=== PATIENT | male | born 1975 | race Caucasian/White ===

== ENCOUNTER 2017-03-05 12:22 | Inpatient (IN) | payer OTHER ==
[2017-03-05 13:55] VITALS: BMI 30.3
--- NOTE | 2017-03-05 17:37 | HP ---
CIWA Score - CIWA Score Nausea/Vomitin-No Nausea/No Vomiting Muscle Tremors: 4-Moderate,w/Arms Extend Anxiety: 4-Mod. Anxious/Guarded Agitation: 1-Slight > Activity Paroxysmal Sweats: 3 Orientation: 0-Oriented Tacttile Disturbances: 0-None Auditory Disturbances: 3-Moderate Harsh/Frighten Visual Disturbances: 3-Moderate Sensitivity Headache: 0-None Present CIWA-Ar Total Score: 18 Admission ROS S - HPI Chief Complaint: " I need to get sober and I want to get sober and I need to get sober. I wan to do Detox and Rehab." Pt. is here to detox from Alcohol. Allergies/Adverse Reactions: Allergies Allergy/AdvReac Type Severity Reaction Status Date / Time No Known Allergies Allergy Verified 03/05/17 17:29 History of Present Illness: Pt. is a 41 YO male here to Detox from alcohol. This is pt.'s first Detox admission at [facility]. Patient had 1 Detox admission at [facility] ([place] ) in 08/2016. Longest recent period of sobriety: approx. 1 month (09/2016). Exam Limitations: No Limitations - Ebola screening Have you traveled outside of the country in the last 21 days: No Have you had contact with anyone from an Ebola affected area: No Have you been sick,other than usual withdrawal symptoms: No Do you have a fever: No - Review of Systems Constitutional: Diaphoresis, Loss of Appetite, Malaise, Night Sweats, Changes in sleep, Unintentional Wgt. Loss (Lost approx. 15 lbs. over last 4 months.) EENT: reports: Nose Congestion, Sinus Pressure Respiratory: reports: No Symptoms reported Cardiac: reports: No Symptoms Reported GI: reports: Diarrhea, Nausea, Poor Appetite, Vomiting : reports: No Symptoms Reported Musculoskeletal: reports: No Symptoms Reported Integumentary: reports: No Symptoms Reported Neuro: reports: Tremors Endocrine: reports: No Symptoms Reported Hematology: reports: No Symptoms Reported Psychiatric: reports: Judgement Intact, Mood/Affect Appropiate, Orientated x3, Anxious, Depressed (PTSD; On meds. in past; not currently.) Other Systems: Reviewed and Negative Patient History - Patient Medical History Hx Anemia: No Hx Asthma: No Hx Chronic Obstructive Pulmonary Disease (COPD): No Hx Cancer: No Hx Cardiac Disorders: No Hx Congestive Heart Failure: No Hx Hypertension: No Hx Hypercholesterolemia: No Hx Pacemaker: No HX Cerebrovascular Accident: No Hx Seizures: No Hx Dementia: No Hx Diabetes: No Hx Gastrointestinal Disorders: No (History of Intestinal Polyps; Surgically removed (2013).) Hx Liver Disease: No Hx Genitourinary Disorders: No Hx Sexually Transmitted Disorders: No Hx Renal Disease (ESRD): No Hx Thyroid Disease: No Hx Human Immunodeficiency Virus (HIV): No (Last Tested: 11/2016: NEGATIVE.) Hx Hepatitis C: No (Last Tested: 11/2016: NEGATIVE.) Hx Depression: Yes (and PTSD; On meds. in past, not currently.) Hx Suicide Attempt: No (PATIENT DENIES CURRENT SI / HI.) Hx Bipolar Disorder: Yes (Diagnosed in past at other Detox program (2011). No treatment currently.) Hx Schizophrenia: No Other Medical History: DENIES. - Patient Surgical History Past Surgical History: Yes Hx Neurologic Surgery: No Hx Cataract Extraction: No Hx Cardiac Surgery: No Hx Lung Surgery: No Hx Breast Surgery: No Hx Breast Biopsy: No Hx Abdominal Surgery: No Hx Appendectomy: Yes (1995) Hx Cholecystectomy: No Hx Genitourinary Surgery: No Hx Orthopedic Surgery: No Anesthesia Reaction: No - PPD History Previous Implant?: Yes Documented Results: Negative w/o proof Implanted On Prior [facility] Admission?: Yes PPD to be Administered?: Yes - Reproductive History Patient is a Female of Child Bearing Age (11 -55 yrs old): No (PATIENT IS MALE.) - Smoking Cessation Smoking history: Current every day smoker Have you smoked in the past 12 months: Yes Aproximately how many cigarettes per day: 30 Cigars Per Day: 0 Hx Chewing Tobacco Use: No Initiated information on smoking cessation: Yes 'Breaking Loose' booklet given: 03/05/17 (GIVE ON UNIT.) - Substance & Tx. History Hx Alcohol Use: Yes Hx Substance Use: Yes Substance Use Type: Alcohol, Cocaine Hx Substance Use Treatment: Yes (1 previous Detox at [facility] (08/2016) .) - Substances Abused Alcohol Route: Oral Frequency: Daily Amount used: 2 pints vodka Age of first use: 19 Date of Last Use: 03/05/17 Cocaine Route: Inhalation Frequency: 1-3 times last 30 days Amount used: 3-4 grams Age of first use: 28 Date of Last Use: 03/04/17 Family Disease History - Family Disease History Family Disease History: Diabetes: Grandparent Admission Physical Exam [facility] - Vital Signs Vital Signs: Vital Signs - 24 hr 03/05/17 13:53 Temperature 97.1 F L Pulse Rate 79 Respiratory 20 Rate Blood Pressure 119/71 - Physical General Appearance: Yes: Nourished, Appropriately Dressed, Mild Distress, Tremorous, Anxious HEENTM: Yes: Hearing grossly Normal, Normocephalic, Normal Voice, DB, Pharynx Normal Respiratory: Yes: Chest Non-Tender, Lungs Clear, No Respiratory Distress, No Accessory Muscle Use Neck: Yes: No masses,lesions,Nodules, Supple, Trachea in good position Breast: Yes: Breast Exam Deferred Cardiology: Yes: Regular Rhythm, Regular Rate, S1, S2 Abdominal: Yes: Normal Bowel Sounds, Non Tender, Flat, Soft Genitourinary: Yes: Within Normal Limits Back: Yes: Normal Inspection Musculoskeletal: Yes: full range of Motion, Gait Steady Extremities: Yes: Normal Range of Motion, Non-Tender, Tremors Neurological: Yes: Fully Oriented, Alert, Normal Mood/Affect, Normal Response Integumentary: Yes: Normal Color, Dry, Warm Lymphatic: Yes: Within Normal Limits - Diagnostic (1) Alcohol dependence with uncomplicated withdrawal Current Visit: Yes Status: Acute (2) Cocaine dependence, uncomplicated Current Visit: Yes Status: Acute (3) Nicotine dependence Current Visit: Yes Status: Chronic Qualifiers: Nicotine product type: cigarettes Substance use status: uncomplicated Qualified Code(s): F17.210 - Nicotine dependence, cigarettes, uncomplicated; F17.210 - Nicotine dependence, cigarettes, uncomplicated (4) History of posttraumatic stress disorder (PTSD) Current Visit: Yes Status: Chronic (5) Depression (emotion) Current Visit: Yes Status: Suspected Qualifiers: Depression Type: unspecified Qualified Code(s): F32.9 - Major depressive disorder, single episode, unspecified; F32.9 - Major depressive disorder, single episode, unspecified; F32.9 - Major depressive disorder, single episode, unspecified Cleared for Admission [facility] - Detox or Rehab [facility] Level of Care: Medically Managed Detox Regimen/Protocol: Librium S Breath Alcohol Content Breath Alcohol Content: 0.057 Urine Drug Screen - Results Drug Screen Negative: No Urine Drug Screen Results: PEDRITO-Cocaine
[2017-03-05] MEDS ORDERED: MAG HYDROX/AL HYDROX/SIMETH 30 ML UNIT-DOSE CUP PO PRN (18:07)
[2017-03-05] MEDS ORDERED: IBUPROFEN 400 MG TABLET (FP) PO PRN (18:07)
[2017-03-05] MEDS ORDERED: P-EPHED 60MG/TRIPROLIDI 2.5MG TABLET PO PRN (18:07)
[2017-03-05] MEDS ORDERED: MAGNESIUM CITRATE 300 ML BOTTLE PO PRN (18:07)
[2017-03-05] MEDS ORDERED: chlordiazePOXIDE HCL 25 MG CAPSULE PO PRN (18:07)
[2017-03-05] MEDS ORDERED: chlordiazePOXIDE HCL 25 MG CAPSULE PO ONE (18:07)
[2017-03-05] MEDS ORDERED: MAGNESIUM HYDROX 2400MG/30ML ORAL SUSPENSION 30 ML CUP PO PRN (18:07)
[2017-03-05] MEDS ORDERED: MENTHOL/PHENOL 1 EACH UD MM PRN (18:07)
[2017-03-05] MEDS ORDERED: guaiFENesin/D-METHORPHAN HB 10 ML UNIT-DOSE CUPS PO PRN (18:07)
[2017-03-05] MEDS ORDERED: ACETAMINOPHEN 325 MG TABLET (FP) PO PRN (18:07)
[2017-03-05] MEDS ORDERED: hydrOXYzine PAMOATE 50 MG CAPSULE (FP) PO PRN (18:07)
[2017-03-05] MEDS: NICOTINE POLACRILEX 4 MG GUM BC PRN ×2 (20:02→22:33)
[2017-03-05 20:53] LABS: URINE APPEARANCE CLEAR; URINE BILIRUBIN NEGATIVE (NEGATIVE); URINE BLOOD 2+ (NEGATIVE); URINE COLOR LTYELLOW; URINE GLUCOSE (UA) NEGATIVE (NEGATIVE); URINE KETONE NEGATIVE (NEGATIVE); URINE LEUK ESTERASE NEGATIVE (NEGATIVE); URINE NITRITE NEGATIVE (NEGATIVE); URINE PROTEIN NEGATIVE (NEGATIVE); URINE UROBILINOGEN NEGATIVE mg/dL (0.2-1.0)
[2017-03-05 21:07] LABS: URINE RBC 1 /hpf (0-3); URINE WBC 1 /hpf (3-5)
[2017-03-05] MEDS: chlordiazePOXIDE HCL 25 MG CAPSULE PO SCH (22:32)
[2017-03-05] MEDS: THIAMINE HCL 100 MG TABLET (FP) PO SCH (22:32)
[2017-03-06] MEDS: chlordiazePOXIDE HCL 25 MG CAPSULE PO SCH ×4 (06:10→22:25)
[2017-03-06] MEDS: NICOTINE POLACRILEX 4 MG GUM BC PRN ×6 (06:11→22:26)
[2017-03-06 10:16] LABS: MCH 25.2 pg (25.7-33.7); MCHC 32.5 g/dl (32.0-35.9); MEAN CELL VOLUME 77.5 fl (80-96); MEAN PLT VOLUME 9.2 fl (7.5-11.1); PLATELET COUNT 214 K/MM3 (134-434); RDW 16.8 % (11.9-15.9); WHITE BLOOD COUNT 7.1 K/mm3 (4.0-10.0)
[2017-03-06] MEDS: PRENATAL VITAMINS W/ FOLIC ACID TABLET (FP) PO SCH (10:30)
[2017-03-06 10:37] LABS: ALBUMIN 3.8 g/dl (3.4-5.0); ANION GAP 6 (8-16); CALCIUM 9.1 mg/dL (8.5-10.1); CO2 30 mmol/L (21-32); CREATININE 0.9 mg/dL (0.7-1.3); GLUCOSE,RANDOM 84 mg/dL (74-106); SGOT/AST 20 U/L (15-37); SGPT/ALT 19 U/L (12-78)
[2017-03-06 10:38] LABS: ALK PHOS 63 U/L (45-117); BILIRUBIN,TOTAL 1.1 mg/dL (0.2-1.0); TOT PROT 6.8 g/dl (6.4-8.2)
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
--- NOTE | 2017-03-06 12:25 | PN ---
[facility] CIWA - CIWA Score Nausea/Vomitin-No Nausea/No Vomiting Muscle Tremors: 4-Moderate,w/Arms Extend Anxiety: 5 Agitation: 1-Slight > Activity Paroxysmal Sweats: 3 Orientation: 0-Oriented Tacttile Disturbances: 2-Mild Itch/Numbness/Burn Auditory Disturbances: 0-None Visual Disturbances: 0-None Headache: 3-Moderate CIWA-Ar Total Score: 18 S Progress Note (SOAP) Subjective: Diarrhea, Sweating, Tremors, H/A, Anxious, Interrupted sleep. Objective: PT. A & O X 3, OBSERVED AMBULATING ON UNIT. NO ACUTE DISTRESS. 03/06/17 12:23 Vital Signs Temperature 96.4 F L 03/06/17 09:27 Pulse Rate 64 03/06/17 09:27 Respiratory Rate 18 03/06/17 09:27 Blood Pressure 101/67 03/06/17 09:27 O2 Sat by Pulse Oximetry (%) Laboratory Tests 03/05/17 03/06/17 03/06/17 18:40 07:15 07:15 WBC 7.1 RBC 5.65 H Hgb 14.2 Hct 43.7 MCV 77.5 L MCH 25.2 L MCHC 32.5 RDW 16.8 H Plt Count 214 MPV 9.2 Sodium 142 Potassium 3.9 Chloride 106 Carbon Dioxide 30 Anion Gap 6 L BUN 13 Creatinine 0.9 Creat Clearance w eGFR > 60 Random Glucose 84 Calcium 9.1 Total Bilirubin 1.1 H AST 20 ALT 19 Alkaline Phosphatase 63 Total Protein 6.8 Albumin 3.8 Urine Color Ltyellow Urine Appearance Clear Urine pH 5.0 Ur Specific [place] 1.010 Urine Protein Negative Urine Glucose (UA) Negative Urine Ketones Negative Urine Blood 2+ H Urine Nitrite Negative Urine Bilirubin Negative Urine Urobilinogen Negative Urine RBC 1 Urine WBC 1 Ur Epithelial Cells Rare RPR Titer 03/06/17 07:15 WBC RBC Hgb Hct MCV MCH MCHC RDW Plt Count MPV Sodium Potassium Chloride Carbon Dioxide Anion Gap BUN Creatinine Creat Clearance w eGFR Random Glucose Calcium Total Bilirubin AST ALT Alkaline Phosphatase Total Protein Albumin Urine Color Urine Appearance Urine pH Ur Specific [place] Urine Protein Urine Glucose (UA) Urine Ketones Urine Blood Urine Nitrite Urine Bilirubin Urine Urobilinogen Urine RBC Urine WBC Ur Epithelial Cells RPR Titer Nonreactive LABS NOTED. Assessment: 03/06/17 12:23 WITHDRAWAL SYMPTOMS. Plan: CONTINUE DETOX. REPEAT UA FOR ELEVATED ADMISSION URINE BLOOD LEVEL. PRN IMMODIUM FOR DIARRHEA. INCREASE DAILY PO FLUID INTAKE.
[2017-03-06 12:40] LABS: SICKLE CELL SCREEN POSITIVE (NEGATIVE)
--- NOTE | 2017-03-06 14:20 | EKG ---
Test Reason : Blood Pressure : / mmHG Vent. Rate : 074 BPM Atrial Rate : 074 BPM P-R Int : 166 ms QRS Dur : 102 ms QT Int : 396 ms P-R-T Axes : 071 075 041 degrees QTc Int : 439 ms NORMAL SINUS RHYTHM NORMAL ECG NO PREVIOUS ECGS AVAILABLE Confirmed by SHARRI DE DIOS MD (2013) on 03/06/2017 2:20:02 PM Referred By: Confirmed By:SHARRI DE DIOS MD
[2017-03-06] MEDS: LOPERAMIDE HCL 2 MG CAPSULE PO PRN (17:53)
[2017-03-06] MEDS: THIAMINE HCL 100 MG TABLET (FP) PO SCH (22:25)
[2017-03-07] MEDS: chlordiazePOXIDE HCL 25 MG CAPSULE PO SCH ×3 (05:44→17:26)
[2017-03-07] MEDS: NICOTINE POLACRILEX 4 MG GUM BC PRN ×4 (05:47→20:46)
[2017-03-07] MEDS: PRENATAL VITAMINS W/ FOLIC ACID TABLET (FP) PO SCH (10:17)
--- NOTE | 2017-03-07 13:15 | PN ---
[facility] CIWA - CIWA Score Nausea/Vomitin-Mild Nausea/No Vomiting Muscle Tremors: None Anxiety: 4-Mod. Anxious/Guarded Agitation: 2 Paroxysmal Sweats: 3 Orientation: 0-Oriented Tacttile Disturbances: 1-Very Mild Itch/Numbness Auditory Disturbances: 0-None Visual Disturbances: 3-Moderate Sensitivity Headache: 3-Moderate CIWA-Ar Total Score: 17 [facility] Progress Note (SOAP) Subjective: Sweating, Diarrhea, H/A, Body Aches, Stomach Cramping. Objective: PT. A & O X 3, OBSERVED AMBULATING ON UNIT. NO ACUTE DISTRESS. 03/07/17 13:12 Vital Signs Temperature 97.5 F L 03/07/17 10:32 Pulse Rate 79 03/07/17 10:32 Respiratory Rate 18 03/07/17 10:32 Blood Pressure 121/57 03/07/17 10:32 O2 Sat by Pulse Oximetry (%) Laboratory Tests 03/05/17 03/06/17 03/06/17 18:40 07:15 07:15 WBC 7.1 RBC 5.65 H Hgb 14.2 Hct 43.7 MCV 77.5 L MCH 25.2 L MCHC 32.5 RDW 16.8 H Plt Count 214 MPV 9.2 Sickle Cell Screen Positive Sodium 142 Potassium 3.9 Chloride 106 Carbon Dioxide 30 Anion Gap 6 L BUN 13 Creatinine 0.9 Creat Clearance w eGFR > 60 Random Glucose 84 Calcium 9.1 Total Bilirubin 1.1 H AST 20 ALT 19 Alkaline Phosphatase 63 Total Protein 6.8 Albumin 3.8 Urine Color Ltyellow Urine Appearance Clear Urine pH 5.0 Ur Specific [place] 1.010 Urine Protein Negative Urine Glucose (UA) Negative Urine Ketones Negative Urine Blood 2+ H Urine Nitrite Negative Urine Bilirubin Negative Urine Urobilinogen Negative Urine RBC 1 Urine WBC 1 Ur Epithelial Cells Rare RPR Titer 03/06/17 07:15 WBC RBC Hgb Hct MCV MCH MCHC RDW Plt Count MPV Sickle Cell Screen Sodium Potassium Chloride Carbon Dioxide Anion Gap BUN Creatinine Creat Clearance w eGFR Random Glucose Calcium Total Bilirubin AST ALT Alkaline Phosphatase Total Protein Albumin Urine Color Urine Appearance Urine pH Ur Specific [place] Urine Protein Urine Glucose (UA) Urine Ketones Urine Blood Urine Nitrite Urine Bilirubin Urine Urobilinogen Urine RBC Urine WBC Ur Epithelial Cells RPR Titer Nonreactive LABS NOTED. REPEAT UA RESULTS PENDING. 03/07/17 13:13 Assessment: 03/07/17 13:12 WITHDRAWAL SYMPTOMS. Plan: CONTINUE DETOX. PRN IMMODIUM FOR DIARRHEA. INCREASE DAILY PO FLUID INTAKE.
[2017-03-07] MEDS: THIAMINE HCL 100 MG TABLET (FP) PO SCH (22:17)
[2017-03-07] MEDS: chlordiazePOXIDE 5 MG CAPSULE PO SCH (22:17)
[2017-03-07] MEDS: diphenhydrAMINE HCL 50 MG CAPSULE PO PRN (22:18)
[2017-03-08] MEDS: chlordiazePOXIDE 5 MG CAPSULE PO SCH ×3 (05:32→17:23)
[2017-03-08] MEDS: NICOTINE POLACRILEX 4 MG GUM BC PRN ×7 (05:34→22:38)
[2017-03-08] MEDS: PRENATAL VITAMINS W/ FOLIC ACID TABLET (FP) PO SCH (10:09)
[2017-03-08] MEDS: LOPERAMIDE HCL 2 MG CAPSULE PO PRN (17:25)
[2017-03-08 18:12] LABS: URINE APPEARANCE CLEAR; URINE BILIRUBIN NEGATIVE (NEGATIVE); URINE BLOOD NEGATIVE (NEGATIVE); URINE COLOR LTYELLOW; URINE GLUCOSE (UA) NEGATIVE (NEGATIVE); URINE KETONE NEGATIVE (NEGATIVE); URINE NITRITE NEGATIVE (NEGATIVE); URINE PROTEIN NEGATIVE (NEGATIVE); URINE UROBILINOGEN NEGATIVE mg/dL (0.2-1.0)
--- NOTE | 2017-03-08 20:05 | PN ---
[facility] Progress Note (SOAP) Subjective: Interrupted Sleep, Diarrhea, Stomach Cramping, Tremors. Objective: PT. A & O X 2 (DISORIENTED ABOUT DAY / DATE). PT. OBSERVED AMBULATING ON UNIT. NO ACUTE DISTRESS. 03/08/17 20:02 Vital Signs Temperature 98.5 F 03/08/17 18:19 Pulse Rate 71 03/08/17 18:19 Respiratory Rate 18 03/08/17 18:19 Blood Pressure 111/61 03/08/17 18:19 O2 Sat by Pulse Oximetry (%) Laboratory Tests 03/05/17 03/06/17 03/06/17 18:40 07:15 07:15 WBC 7.1 RBC 5.65 H Hgb 14.2 Hct 43.7 MCV 77.5 L MCH 25.2 L MCHC 32.5 RDW 16.8 H Plt Count 214 MPV 9.2 Sickle Cell Screen Positive Sodium 142 Potassium 3.9 Chloride 106 Carbon Dioxide 30 Anion Gap 6 L BUN 13 Creatinine 0.9 Creat Clearance w eGFR > 60 Random Glucose 84 Calcium 9.1 Total Bilirubin 1.1 H AST 20 ALT 19 Alkaline Phosphatase 63 Total Protein 6.8 Albumin 3.8 Urine Color Ltyellow Urine Appearance Clear Urine pH 5.0 Ur Specific [place] 1.010 Urine Protein Negative Urine Glucose (UA) Negative Urine Ketones Negative Urine Blood 2+ H Urine Nitrite Negative Urine Bilirubin Negative Urine Urobilinogen Negative Urine RBC 1 Urine WBC 1 Ur Epithelial Cells Rare RPR Titer 03/06/17 03/08/17 07:15 11:00 WBC RBC Hgb Hct MCV MCH MCHC RDW Plt Count MPV Sickle Cell Screen Sodium Potassium Chloride Carbon Dioxide Anion Gap BUN Creatinine Creat Clearance w eGFR Random Glucose Calcium Total Bilirubin AST ALT Alkaline Phosphatase Total Protein Albumin Urine Color Ltyellow Urine Appearance Clear Urine pH 7.0 D Ur Specific [place] Urine Protein Negative Urine Glucose (UA) Negative Urine Ketones Negative Urine Blood Negative Urine Nitrite Negative Urine Bilirubin Negative Urine Urobilinogen Negative Urine RBC Urine WBC Ur Epithelial Cells RPR Titer Nonreactive LABS NOTED. Assessment: 03/08/17 20:03 WITHDRAWAL SYMPTOMS. Plan: CONTINUE DETOX.
[2017-03-08] MEDS: THIAMINE HCL 100 MG TABLET (FP) PO SCH (22:36)
[2017-03-08] MEDS: chlordiazePOXIDE HCL 10 MG CAPSULE PO SCH (22:36)
[2017-03-08] MEDS: diphenhydrAMINE HCL 50 MG CAPSULE PO PRN (22:37)
[2017-03-08 22:40] LABS: URINE LEUK ESTERASE Negative (NEGATIVE)
[2017-03-08 23:54] VITALS: PULSE 66
[2017-03-09] MEDS: chlordiazePOXIDE HCL 10 MG CAPSULE PO SCH (06:03)
[2017-03-09] MEDS: NICOTINE POLACRILEX 4 MG GUM BC PRN ×2 (06:05→08:51)
[2017-03-09 07:53] VITALS: BP 118/59; TEMP 98
--- NOTE | 2017-03-09 08:38 | DS ---
[facility] Detox Discharge Summary Admission Date: 03/05/17 Discharge Date: 03/09/17 - History Present History: Alcohol Dependence, Cocaine Dependence Additional Comments: Completed detox. Pt is alert and oriented x 3. NAD. Pt instructed to follow up with PMD for medical management at [facility]. Pertinent Past History: Nicotine dependence, Depression, H/O PTSD - Physical Exam Results Vital Signs: Vital Signs Temperature 98 F 03/09/17 05:00 Pulse Rate 66 03/09/17 05:00 Respiratory Rate 18 03/09/17 05:00 Blood Pressure 118/59 03/09/17 05:00 O2 Sat by Pulse Oximetry (%) Laboratory Last Values WBC 7.1 K/mm3 (4.0-10.0) 03/06/17 07:15 RBC 5.65 M/mm3 (4.00-5.60) H 03/06/17 07:15 Hgb 14.2 GM/dL (11.7-16.9) 03/06/17 07:15 Hct 43.7 % (35.4-49) 03/06/17 07:15 MCV 77.5 fl (80-96) L 03/06/17 07:15 MCH 25.2 pg (25.7-33.7) L 03/06/17 07:15 MCHC 32.5 g/dl (32.0-35.9) 03/06/17 07:15 RDW 16.8 % (11.9-15.9) H 03/06/17 07:15 Plt Count 214 K/MM3 (134-434) 03/06/17 07:15 MPV 9.2 fl (7.5-11.1) 03/06/17 07:15 Sickle Cell Screen Positive (NEGATIVE) 03/06/17 07:15 Sodium 142 mmol/L (136-145) 03/06/17 07:15 Potassium 3.9 mmol/L (3.5-5.1) 03/06/17 07:15 Chloride 106 mmol/L (98-107) 03/06/17 07:15 Carbon Dioxide 30 mmol/L (21-32) 03/06/17 07:15 Anion Gap 6 (8-16) L 03/06/17 07:15 BUN 13 mg/dL (7-18) 03/06/17 07:15 Creatinine 0.9 mg/dL (0.7-1.3) 03/06/17 07:15 Creat Clearance w eGFR > 60 (>60) 03/06/17 07:15 Random Glucose 84 mg/dL (74-106) 03/06/17 07:15 Calcium 9.1 mg/dL (8.5-10.1) 03/06/17 07:15 Total Bilirubin 1.1 mg/dL (0.2-1.0) H 03/06/17 07:15 AST 20 U/L (15-37) 03/06/17 07:15 ALT 19 U/L (12-78) 03/06/17 07:15 Alkaline Phosphatase 63 U/L (45-117) 03/06/17 07:15 Total Protein 6.8 g/dl (6.4-8.2) 03/06/17 07:15 Albumin 3.8 g/dl (3.4-5.0) 03/06/17 07:15 Urine Color Ltyellow 03/08/17 11:00 Urine Appearance Clear 03/08/17 11:00 Urine pH 7.0 (5.0-8.0) D 03/08/17 11:00 Ur Specific [place] 1.020 (1.005-1.025) 03/08/17 11:00 Urine Protein Negative (NEGATIVE) 03/08/17 11:00 Urine Glucose (UA) Negative (NEGATIVE) 03/08/17 11:00 Urine Ketones Negative (NEGATIVE) 03/08/17 11:00 Urine Blood Negative (NEGATIVE) 03/08/17 11:00 Urine Nitrite Negative (NEGATIVE) 03/08/17 11:00 Urine Bilirubin Negative (NEGATIVE) 03/08/17 11:00 Urine Urobilinogen Negative mg/dL (0.2-1.0) 03/08/17 11:00 Ur Leukocyte Esterase Negative (NEGATIVE) 03/08/17 11:00 Urine RBC 1 /hpf (0-3) 03/05/17 18:40 Urine WBC 1 /hpf (3-5) 03/05/17 18:40 Ur Epithelial Cells Rare /hpf (FEW) 03/05/17 18:40 RPR Titer Nonreactive (NONREACTIVE) 03/06/17 07:15 Labs reviewed Pertinent Admission Physical Exam Findings: Withdrawal sx - Treatment Hospital Course: Detox Protocol Followed, Detoxed Safely, Responded well, Discharged Condition Good Patient has Accepted a Rehab Referral to: [facility] - Medication Discharge Medications: Ambulatory Orders NK [No Known Home Medication] 03/05/17 - Diagnosis (1) Alcohol dependence with uncomplicated withdrawal Current Visit: Yes Status: Acute (2) Cocaine dependence, uncomplicated Current Visit: Yes Status: Acute (3) History of posttraumatic stress disorder (PTSD) Current Visit: Yes Status: Chronic (4) Nicotine dependence Current Visit: Yes Status: Chronic Qualifiers: Nicotine product type: cigarettes Substance use status: uncomplicated Qualified Code(s): F17.210 - Nicotine dependence, cigarettes, uncomplicated; F17.210 - Nicotine dependence, cigarettes, uncomplicated (5) Depression (emotion) Current Visit: Yes Status: Suspected Qualifiers: Depression Type: unspecified Qualified Code(s): F32.9 - Major depressive disorder, single episode, unspecified; F32.9 - Major depressive disorder, single episode, unspecified; F32.9 - Major depressive disorder, single episode, unspecified - AMA Did Patient Leave Against Medical Advice: No
--- NOTE | 2017-03-10 16:16 | PN ---
[facility] Progress Note Note: Discharge summary done under my direct supervision of Pau Borja NP
--- NOTE | 2017-03-11 12:46 | HP ---
[facility] Rehab Assess/Revision - Admission History Ad[facility] (PT COMPLETED DETOX ON 03/09/17) Date of Admission to Rehab: 03/11/17 - Findings Detox History & Physical reviewed: Yes Concur with findings: Yes Comments/Additional Findings: PT CAME BACK TODAY TO CONTINUE WITH AFTERCARE RECOMMENDATIONS. ALERT O X 3. NAD. Inpatient Rehab Admission - Initial Determination Are CD services needed?: Yes Free of communicable disease: Yes Not in need of hospitalization: Yes - Rehab Admission Criteria Previous failed treatment: Yes Patient is meeting Inpatient Rehab admission criteria:: Yes (RECENT DETOX AND FOLLOWING UP WITH AFTERCARE.)
== END 2017-03-09 08:59 | disposition home or self-care (01) | DRG 774 ==
LOC: YASAS 12:22 → Y3N 16:16
PROVIDERS: ADMIT Internal Medicine; ATTEND Internal Medicine
PROC: HZ2ZZZZ Detoxification Services for Substance Abuse Treatment (ICD-10-PCS; principal; 2017-03-05)
DX: F10.230 Alcohol dependence with withdrawal, uncomplicated (principal); F14.20 Cocaine dependence, uncomplicated; F17.210 Nicotine dependence, cigarettes, uncomplicated; F43.10 Post-traumatic stress disorder, unspecified; F32.9 Major depressive disorder, single episode, unspecified; F19.24 Other psychoactive substance dependence with psychoactive substance-induced mood disorder
CPT/HCPCS: 36415; 80053; 81003; 81015; 83021; 85027; 85660; 86593; 93005; 93010

== ENCOUNTER 2017-03-11 07:46 | Inpatient (IN) | payer OTHER ==
[2017-03-11 08:54] VITALS: BMI 31.4
--- NOTE | 2017-03-11 12:55 | PN ---
[facility]IRIAM Progress Note Note: [facility] *LIVE* MIRIAM SAUL Rehab Assess/Revision Patient Name: JASPER FERNANDO Date of : 75 Patient Status: Inpatient Attending Provider: Talat Montelongo Date: 03/11/17 12:41 Initialization Date: 03/11/17 12:41 [facility]UL Rehab Assess/Revision - Admission History Admitted to Rehab [facility]: [facility] (PT COMPLETED DETOX ON 03/09/17) Date of Admission to Rehab: 03/11/17 - Findings Detox History & Physical reviewed: Yes Concur with findings: Yes Comments/Additional Findings: PT CAME BACK TODAY TO CONTINUE WITH AFTERCARE RECOMMENDATIONS. ALERT O X 3. NAD. Inpatient Rehab Admission - Initial Determination Are CD services needed?: Yes Free of communicable disease: Yes Not in need of hospitalization: Yes - Rehab Admission Criteria Previous failed treatment: Yes Patient is meeting Inpatient Rehab admission criteria:: Yes (RECENT DETOX AND FOLLOWING UP WITH AFTERCARE.)
[2017-03-11] MEDS ORDERED: IBUPROFEN 400 MG TABLET (FP) PO PRN (12:57)
[2017-03-11] MEDS ORDERED: hydrOXYzine PAMOATE 50 MG CAPSULE (FP) PO PRN (12:57)
[2017-03-11] MEDS ORDERED: LOPERAMIDE HCL 2 MG CAPSULE PO PRN (12:57)
[2017-03-11] MEDS ORDERED: guaiFENesin/D-METHORPHAN HB 10 ML UNIT-DOSE CUPS PO PRN (12:57)
[2017-03-11] MEDS ORDERED: P-EPHED 60MG/TRIPROLIDI 2.5MG TABLET PO PRN (12:57)
[2017-03-11] MEDS ORDERED: MAG HYDROX/AL HYDROX/SIMETH 30 ML UNIT-DOSE CUP PO PRN (12:57)
[2017-03-11] MEDS ORDERED: MAGNESIUM CITRATE 300 ML BOTTLE PO PRN (12:57)
[2017-03-11] MEDS ORDERED: diphenhydrAMINE HCL 50 MG CAPSULE PO PRN (12:57)
[2017-03-11] MEDS ORDERED: MENTHOL/PHENOL 1 EACH UD MM PRN (12:57)
[2017-03-11] MEDS ORDERED: MAGNESIUM HYDROX 2400MG/30ML ORAL SUSPENSION 30 ML CUP PO PRN (12:57)
[2017-03-11] MEDS ORDERED: ACETAMINOPHEN 325 MG TABLET (FP) PO PRN (12:57)
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
[2017-03-11] MEDS: NICOTINE POLACRILEX 4 MG GUM BUC PRN ×3 (16:27→22:03)
[2017-03-11 17:25] LABS: URINE APPEARANCE CLEAR; URINE BILIRUBIN NEGATIVE (NEGATIVE); URINE BLOOD NEGATIVE (NEGATIVE); URINE COLOR YELLOW; URINE GLUCOSE (UA) NEGATIVE (NEGATIVE); URINE KETONE NEGATIVE (NEGATIVE); URINE NITRITE NEGATIVE (NEGATIVE); URINE PROTEIN NEGATIVE (NEGATIVE); URINE UROBILINOGEN NEGATIVE mg/dL (0.2-1.0)
[2017-03-11 21:38] LABS: URINE LEUK ESTERASE Negative (NEGATIVE)
[2017-03-11] MEDS: busPIRone HCL 5 MG TABLET PO SCH (22:01)
[2017-03-11] MEDS: THIAMINE HCL 100 MG TABLET (FP) PO SCH (22:01)
[2017-03-11] MEDS: PRAZOSIN HCL 1 MG CAPSULE PO SCH (22:01)
[2017-03-11] MEDS: QUEtiapine FUMARATE 50 MG TABLET PO SCH (22:01)
[2017-03-12] MEDS: busPIRone HCL 5 MG TABLET PO SCH ×3 (06:37→21:41)
[2017-03-12] MEDS: NICOTINE POLACRILEX 4 MG GUM BUC PRN ×5 (06:38→21:41)
[2017-03-12] MEDS: PRENATAL VITAMINS W/ FOLIC ACID TABLET (FP) PO SCH (10:42)
--- NOTE | 2017-03-12 13:17 | EKG ---
Test Reason : Blood Pressure : / mmHG Vent. Rate : 064 BPM Atrial Rate : 064 BPM P-R Int : 178 ms QRS Dur : 098 ms QT Int : 396 ms P-R-T Axes : 051 075 039 degrees QTc Int : 408 ms NORMAL SINUS RHYTHM INCOMPLETE RIGHT BUNDLE BRANCH BLOCK BORDERLINE ECG WHEN COMPARED WITH ECG OF 05-MAR-2017 20:04, NO SIGNIFICANT CHANGE WAS FOUND Confirmed by TYLER MARIE MD ([id number]) on 03/12/2017 1:16:39 PM Referred By: Samia Dawn Confirmed By:TYLER MARIE MD
[2017-03-12] MEDS: QUEtiapine FUMARATE 50 MG TABLET PO SCH (21:41)
[2017-03-12] MEDS: PRAZOSIN HCL 1 MG CAPSULE PO SCH (21:41)
[2017-03-12] MEDS: THIAMINE HCL 100 MG TABLET (FP) PO SCH (21:41)
[2017-03-13] MEDS: busPIRone HCL 5 MG TABLET PO SCH ×3 (06:15→21:41)
[2017-03-13] MEDS: NICOTINE POLACRILEX 4 MG GUM BUC PRN ×5 (06:16→21:42)
[2017-03-13] MEDS: PRENATAL VITAMINS W/ FOLIC ACID TABLET (FP) PO SCH (10:21)
[2017-03-13] MEDS: THIAMINE HCL 100 MG TABLET (FP) PO SCH (21:41)
[2017-03-13] MEDS: PRAZOSIN HCL 1 MG CAPSULE PO SCH (21:41)
[2017-03-13] MEDS: QUEtiapine FUMARATE 50 MG TABLET PO SCH (21:41)
[2017-03-14] MEDS: busPIRone HCL 5 MG TABLET PO SCH ×2 (06:18→14:45)
[2017-03-14] MEDS: NICOTINE POLACRILEX 4 MG GUM BUC PRN ×6 (08:22→21:45)
[2017-03-14] MEDS: PRENATAL VITAMINS W/ FOLIC ACID TABLET (FP) PO SCH (10:34)
--- NOTE | 2017-03-14 14:19 | PN ---
Psychiatric Progress Note Vital Signs: Vital Signs Period Temp Pulse Resp BP Sys/Melton Pulse Ox Last 24 Hr 97.5 F 64-64 16-18 102-126/64-69 Date of Session: 03/14/17 Chief Complaint:: "anxiety" HPI: Patient is addressing alcohol, nicotine, cocaine use comorbid PTSD and MU. ROS: WNL Current Medications: Active Medications Generic Name Dose Route Start Last Admin Trade Name Freq PRN Reason Stop Dose Admin Acetaminophen 650 mg 03/11/17 12:57 Tylenol - PO Q4H PRN PAIN Al Hydroxide/Mg Hydroxide 30 ml 03/11/17 12:57 Mylanta Oral Suspension - PO Q6H PRN DYSPEPSIA Buspirone HCl 10 mg 03/14/17 14:14 Buspar - PO TID ARRON Diphenhydramine HCl 50 mg 03/11/17 12:57 Benadryl - PO HSMR1 PRN INSOMNIA Eucalyptus/Menthol/Phenol/Sorbitol 1 each 03/11/17 12:57 Cepastat Lozenge - MM Q4H PRN SORE THROAT Guaifenesin 10 ml 03/11/17 12:57 Robitussin Dm - PO Q6H PRN COUGH Hydroxyzine Pamoate 50 mg 03/11/17 12:57 Vistaril - PO Q4H PRN AGITATION Ibuprofen 400 mg 03/11/17 12:57 Motrin - PO Q6H PRN SEVERE PAIN Loperamide HCl 4 mg 03/11/17 12:57 Imodium - PO Q6H PRN DIARRHEA Magnesium Citrate 300 ml 03/11/17 12:57 Citroma - PO Q48H PRN CONSTIPATION Magnesium Hydroxide 30 ml 03/11/17 12:57 Milk Of Magnesia - PO DAILY PRN CONSTIPATION Nicotine Polacrilex 4 mg 03/11/17 12:57 03/14/17 12:41 Nicorette Gum - BUC 4 mg Q2H PRN Administration NICOTINE REPLACEMENT RX Prazosin HCl 2 mg 03/14/17 14:15 Minipress - PO HS ARRON Multivit/Folic Acid/Iron 1 tab 03/12/17 10:00 03/14/17 10:34 Vitamins (Sjr) - PO 1 tab DAILY ARRON Administration Pseudoephedrine/Triprolidine 1 combo 03/11/17 12:57 Actifed - PO TID PRN NASAL CONGESTION Quetiapine Fumarate 50 mg 03/11/17 22:00 03/13/17 21:41 Seroquel - PO 50 mg HS ARRON Administration Thiamine HCl 100 mg 03/11/17 22:00 03/13/17 21:41 Vitamin B1 - PO 100 mg HS ARRON Administration Current Side Effect: No Lab tests ordered: No Lab tests reviewed: Yes Provider note:: Patient reports he feels less anxious since he started Buspar ( not biting his nails), nightmares continues unchanged, no side-effects from medications reported, reviewed medications with the patient , will increase Buspar 10 mg po tis amd Prazoszin 2 mg po hs, continue to monitor progress, supportive tharapy provided. Total face to face time:: 25 Mental Status Exam - Mental Status Exam Alert and Oriented to: Time, Place, Person Cognitive Function: Grossly Intact Patient Appearance: Well Groomed Mood: Anxious Affect: Mood Congruent Patient Behavior: Cooperative Speech Pattern: Clear, Appropriate Voice Loudness: Normal Thought Process: Goal Oriented Thought Disorder: Not Present Hallucinations: Denies Suicidal Ideation: Denies Homicidal Ideation: Denies Insight/Judgement: Fair Sleep: Fair Appetite: Fair Muscle strength/Tone: Normal Gait/Station: Normal Psychiatric Treatment Plan - Problem List (1) Nicotine dependence Current Visit: Yes Qualifiers: Nicotine product type: cigarettes Substance use status: in withdrawal Qualified Code(s): F17.213 - Nicotine dependence, cigarettes, with withdrawal; F17.213 - Nicotine dependence, cigarettes, with withdrawal (2) Post traumatic stress disorder (PTSD) Current Visit: Yes (3) MU (generalized anxiety disorder) Current Visit: Yes (4) Alcohol dependence Current Visit: Yes (5) Cocaine abuse Current Visit: Yes
[2017-03-14] MEDS: busPIRone HCL 10 MG TABLET (FP) PO SCH ×2 (14:26→21:44)
[2017-03-14] MEDS: THIAMINE HCL 100 MG TABLET (FP) PO SCH (21:43)
[2017-03-14] MEDS: PRAZOSIN HCL 1 MG CAPSULE PO SCH (21:44)
[2017-03-14] MEDS: QUEtiapine FUMARATE 50 MG TABLET PO SCH (21:44)
[2017-03-15] MEDS: busPIRone HCL 10 MG TABLET (FP) PO SCH ×3 (06:30→21:37)
[2017-03-15] MEDS: NICOTINE POLACRILEX 4 MG GUM BUC PRN ×5 (06:30→21:38)
[2017-03-15] MEDS: PRENATAL VITAMINS W/ FOLIC ACID TABLET (FP) PO SCH (10:54)
[2017-03-15] MEDS: PRAZOSIN HCL 1 MG CAPSULE PO SCH (21:37)
[2017-03-15] MEDS: THIAMINE HCL 100 MG TABLET (FP) PO SCH (21:37)
[2017-03-15] MEDS: QUEtiapine FUMARATE 50 MG TABLET PO SCH (21:37)
[2017-03-16] MEDS: busPIRone HCL 10 MG TABLET (FP) PO SCH ×3 (06:48→21:32)
[2017-03-16] MEDS: NICOTINE POLACRILEX 4 MG GUM BUC PRN ×6 (06:48→21:34)
[2017-03-16] MEDS: PRENATAL VITAMINS W/ FOLIC ACID TABLET (FP) PO SCH (10:30)
[2017-03-16] MEDS: QUEtiapine FUMARATE 50 MG TABLET PO SCH (21:32)
[2017-03-16] MEDS: PRAZOSIN HCL 1 MG CAPSULE PO SCH (21:32)
[2017-03-16] MEDS: THIAMINE HCL 100 MG TABLET (FP) PO SCH (21:32)
[2017-03-17] MEDS: busPIRone HCL 10 MG TABLET (FP) PO SCH ×3 (06:18→21:53)
[2017-03-17] MEDS: PRENATAL VITAMINS W/ FOLIC ACID TABLET (FP) PO SCH (10:24)
[2017-03-17] MEDS: NICOTINE POLACRILEX 4 MG GUM BUC PRN ×4 (10:25→20:11)
[2017-03-17] MEDS: THIAMINE HCL 100 MG TABLET (FP) PO SCH (21:53)
[2017-03-17] MEDS: QUEtiapine FUMARATE 50 MG TABLET PO SCH (21:53)
[2017-03-17] MEDS: PRAZOSIN HCL 1 MG CAPSULE PO SCH (21:53)
[2017-03-18] MEDS: busPIRone HCL 10 MG TABLET (FP) PO SCH ×3 (06:22→21:32)
[2017-03-18] MEDS: NICOTINE POLACRILEX 4 MG GUM BUC PRN ×5 (06:22→21:33)
[2017-03-18] MEDS: PRENATAL VITAMINS W/ FOLIC ACID TABLET (FP) PO SCH (10:06)
[2017-03-18] MEDS: THIAMINE HCL 100 MG TABLET (FP) PO SCH (21:32)
[2017-03-18] MEDS: QUEtiapine FUMARATE 50 MG TABLET PO SCH (21:32)
[2017-03-18] MEDS: PRAZOSIN HCL 1 MG CAPSULE PO SCH (21:33)
[2017-03-19] MEDS: busPIRone HCL 10 MG TABLET (FP) PO SCH ×3 (06:31→21:33)
[2017-03-19] MEDS: NICOTINE POLACRILEX 4 MG GUM BUC PRN ×5 (06:31→21:34)
[2017-03-19] MEDS: PRENATAL VITAMINS W/ FOLIC ACID TABLET (FP) PO SCH (10:34)
[2017-03-19] MEDS: THIAMINE HCL 100 MG TABLET (FP) PO SCH (21:33)
[2017-03-19] MEDS: PRAZOSIN HCL 1 MG CAPSULE PO SCH (21:33)
[2017-03-19] MEDS: QUEtiapine FUMARATE 50 MG TABLET PO SCH (21:33)
[2017-03-20] MEDS: busPIRone HCL 10 MG TABLET (FP) PO SCH (06:05)
[2017-03-20] MEDS: NICOTINE POLACRILEX 4 MG GUM BUC PRN ×5 (06:06→21:53)
[2017-03-20] MEDS: PRENATAL VITAMINS W/ FOLIC ACID TABLET (FP) PO SCH (10:10)
--- NOTE | 2017-03-20 10:48 | PN ---
Psychiatric Progress Note Vital Signs: Vital Signs Period Temp Pulse Resp BP Sys/Melton Pulse Ox Last 24 Hr 97.4 F 62 16-18 105/62 Date of Session: 03/20/17 Chief Complaint:: progress update HPI: Patient is addressing alcohol, nicotine, cocaine use comorbid PTSD and MU. ROS: wnl Current Medications: Active Medications Generic Name Dose Route Start Last Admin Trade Name Freq PRN Reason Stop Dose Admin Acetaminophen 650 mg 03/11/17 12:57 Tylenol - PO Q4H PRN PAIN Al Hydroxide/Mg Hydroxide 30 ml 03/11/17 12:57 Mylanta Oral Suspension - PO Q6H PRN DYSPEPSIA Buspirone HCl 15 mg 03/20/17 10:40 Buspar - PO TID ARRON Diphenhydramine HCl 50 mg 03/11/17 12:57 Benadryl - PO HSMR1 PRN INSOMNIA Eucalyptus/Menthol/Phenol/Sorbitol 1 each 03/11/17 12:57 Cepastat Lozenge - MM Q4H PRN SORE THROAT Guaifenesin 10 ml 03/11/17 12:57 Robitussin Dm - PO Q6H PRN COUGH Hydroxyzine Pamoate 50 mg 03/11/17 12:57 Vistaril - PO Q4H PRN AGITATION Ibuprofen 400 mg 03/11/17 12:57 Motrin - PO Q6H PRN SEVERE PAIN Loperamide HCl 4 mg 03/11/17 12:57 Imodium - PO Q6H PRN DIARRHEA Magnesium Citrate 300 ml 03/11/17 12:57 Citroma - PO Q48H PRN CONSTIPATION Magnesium Hydroxide 30 ml 03/11/17 12:57 Milk Of Magnesia - PO DAILY PRN CONSTIPATION Nicotine Polacrilex 4 mg 03/11/17 12:57 03/20/17 08:28 Nicorette Gum - BUC 4 mg Q2H PRN Administration NICOTINE REPLACEMENT RX Prazosin HCl 2 mg 03/14/17 22:00 03/19/17 21:33 Minipress - PO 2 mg HS ARRON Administration Multivit/Folic Acid/Iron 1 tab 03/12/17 10:00 03/20/17 10:10 Vitamins (Sjr) - PO 1 tab DAILY ARRON Administration Pseudoephedrine/Triprolidine 1 combo 03/11/17 12:57 Actifed - PO TID PRN NASAL CONGESTION Quetiapine Fumarate 50 mg 03/11/17 22:00 03/19/17 21:33 Seroquel - PO 50 mg HS ARRON Administration Thiamine HCl 100 mg 03/11/17 22:00 03/19/17 21:33 Vitamin B1 - PO 100 mg HS ARRON Administration Medication(s) Change(s): Increase Buspar 15 mg po tid Current Side Effect: No Lab tests ordered: No Lab tests reviewed: Yes Provider note:: Patient was seen today, he reports has been feeling more anxious , found out he is leaving on Ocober 23, he focused on his aftecare plans, reports that his family is very supportive. He reports is more anxious when thinking that he is going to a new program. Supportive therapy provided, discussed treatment plan, patient agreed with careplan. Continue to moniotor progress. Total face to face time:: 25 Mental Status Exam - Mental Status Exam Alert and Oriented to: Time, Place, Person Cognitive Function: Good Patient Appearance: Well Groomed Mood: Anxious Affect: Appropriate, Mood Congruent, Normal Range Patient Behavior: Appropriate, Cooperative Speech Pattern: Clear Voice Loudness: Normal Thought Process: Goal Oriented Thought Disorder: Not Present Hallucinations: None Suicidal Ideation: Denies Homicidal Ideation: Denies Insight/Judgement: Fair Sleep: Fair Appetite: Fair Muscle strength/Tone: Normal Gait/Station: Normal Psychiatric Treatment Plan - Problem List (1) Nicotine dependence Current Visit: Yes Qualifiers: Nicotine product type: cigarettes Substance use status: in withdrawal Qualified Code(s): F17.213 - Nicotine dependence, cigarettes, with withdrawal; F17.213 - Nicotine dependence, cigarettes, with withdrawal (2) Post traumatic stress disorder (PTSD) Current Visit: Yes (3) MU (generalized anxiety disorder) Current Visit: Yes (4) Alcohol dependence Current Visit: Yes (5) Cocaine abuse Current Visit: Yes
[2017-03-20] MEDS: PRAZOSIN HCL 1 MG CAPSULE PO SCH (21:51)
[2017-03-20] MEDS: THIAMINE HCL 100 MG TABLET (FP) PO SCH (21:52)
[2017-03-20] MEDS: QUEtiapine FUMARATE 50 MG TABLET PO SCH (21:52)
[2017-03-21] MEDS: NICOTINE POLACRILEX 4 MG GUM BUC PRN ×7 (06:12→21:58)
[2017-03-21] MEDS: PRENATAL VITAMINS W/ FOLIC ACID TABLET (FP) PO SCH (10:52)
[2017-03-21] MEDS: PRAZOSIN HCL 1 MG CAPSULE PO SCH (21:56)
[2017-03-21] MEDS: QUEtiapine FUMARATE 50 MG TABLET PO SCH (21:57)
[2017-03-21] MEDS: THIAMINE HCL 100 MG TABLET (FP) PO SCH (21:57)
[2017-03-22] MEDS: PRENATAL VITAMINS W/ FOLIC ACID TABLET (FP) PO SCH (10:18)
[2017-03-22] MEDS: NICOTINE POLACRILEX 4 MG GUM BUC PRN ×4 (10:18→21:49)
[2017-03-22] MEDS: PRAZOSIN HCL 1 MG CAPSULE PO SCH (21:48)
[2017-03-22] MEDS: THIAMINE HCL 100 MG TABLET (FP) PO SCH (21:48)
[2017-03-22] MEDS: QUEtiapine FUMARATE 50 MG TABLET PO SCH (21:48)
[2017-03-23] MEDS: NICOTINE POLACRILEX 4 MG GUM BUC PRN ×5 (10:45→21:44)
[2017-03-23] MEDS: PRENATAL VITAMINS W/ FOLIC ACID TABLET (FP) PO SCH (10:45)
[2017-03-23] MEDS: THIAMINE HCL 100 MG TABLET (FP) PO SCH (21:43)
[2017-03-23] MEDS: PRAZOSIN HCL 1 MG CAPSULE PO SCH (21:43)
[2017-03-23] MEDS: QUEtiapine FUMARATE 50 MG TABLET PO SCH (21:43)
[2017-03-24] MEDS: NICOTINE POLACRILEX 4 MG GUM BUC PRN ×5 (06:18→21:33)
[2017-03-24] MEDS: PRENATAL VITAMINS W/ FOLIC ACID TABLET (FP) PO SCH (10:32)
[2017-03-24] MEDS: PRAZOSIN HCL 1 MG CAPSULE PO SCH (21:32)
[2017-03-24] MEDS: QUEtiapine FUMARATE 50 MG TABLET PO SCH (21:32)
[2017-03-24] MEDS: THIAMINE HCL 100 MG TABLET (FP) PO SCH (21:33)
[2017-03-25] MEDS: NICOTINE POLACRILEX 4 MG GUM BUC PRN ×7 (06:15→22:08)
[2017-03-25] MEDS: PRENATAL VITAMINS W/ FOLIC ACID TABLET (FP) PO SCH (10:38)
--- NOTE | 2017-03-25 12:52 | PN ---
Psychiatric Progress Note Vital Signs: Vital Signs Period Temp Pulse Resp BP Sys/Melton Pulse Ox Last 24 Hr 98.4 F 62 18-18 109/62 Date of Session: 03/25/17 Chief Complaint:: "anxious" HPI: Patient is addressing alcohol, nicotine, cocaine use comorbid PTSD and MU ROS: WNL Current Medications: Active Medications Generic Name Dose Route Start Last Admin Trade Name Freq PRN Reason Stop Dose Admin Acetaminophen 650 mg 03/11/17 12:57 Tylenol - PO Q4H PRN PAIN Al Hydroxide/Mg Hydroxide 30 ml 03/11/17 12:57 Mylanta Oral Suspension - PO Q6H PRN DYSPEPSIA Buspirone HCl 20 mg 03/25/17 12:50 Buspar - PO TID ARRON Diphenhydramine HCl 50 mg 03/11/17 12:57 Benadryl - PO HSMR1 PRN INSOMNIA Eucalyptus/Menthol/Phenol/Sorbitol 1 each 03/11/17 12:57 Cepastat Lozenge - MM Q4H PRN SORE THROAT Guaifenesin 10 ml 03/11/17 12:57 Robitussin Dm - PO Q6H PRN COUGH Hydroxyzine Pamoate 50 mg 03/11/17 12:57 Vistaril - PO Q4H PRN AGITATION Ibuprofen 400 mg 03/11/17 12:57 Motrin - PO Q6H PRN SEVERE PAIN Loperamide HCl 4 mg 03/11/17 12:57 Imodium - PO Q6H PRN DIARRHEA Magnesium Citrate 300 ml 03/11/17 12:57 Citroma - PO Q48H PRN CONSTIPATION Magnesium Hydroxide 30 ml 03/11/17 12:57 Milk Of Magnesia - PO DAILY PRN CONSTIPATION Nicotine Polacrilex 4 mg 03/11/17 12:57 03/25/17 10:38 Nicorette Gum - BUC 4 mg Q2H PRN Administration NICOTINE REPLACEMENT RX Prazosin HCl 2 mg 03/14/17 22:00 03/24/17 21:32 Minipress - PO 2 mg HS ARRON Administration Multivit/Folic Acid/Iron 1 tab 03/12/17 10:00 03/25/17 10:38 Vitamins (Sjr) - PO 1 tab DAILY ARRON Administration Pseudoephedrine/Triprolidine 1 combo 03/11/17 12:57 Actifed - PO TID PRN NASAL CONGESTION Quetiapine Fumarate 50 mg 03/11/17 22:00 03/24/17 21:32 Seroquel - PO 50 mg HS ARRON Administration Thiamine HCl 100 mg 03/11/17 22:00 03/24/17 21:33 Vitamin B1 - PO 100 mg HS ARRON Administration Current Side Effect: No Lab tests ordered: No Lab tests reviewed: Yes Provider note:: Patient reports that he has been feeling less anxious, but still has days when he is anxious and restless, he reports no side-effects from medications, sleep is improved and no nightmares reported. Will increase Buspar 20 mg po tid, patient agreed with careplan, continue to monitor progress. Total face to face time:: 25 Mental Status Exam - Mental Status Exam Alert and Oriented to: Time, Place, Person Cognitive Function: Good Patient Appearance: Well Groomed Mood: Sad, Anxious Affect: Appropriate, Mood Congruent Patient Behavior: Appropriate, Cooperative Speech Pattern: Clear, Appropriate Voice Loudness: Normal Thought Process: Intact, Goal Oriented Thought Disorder: Not Present Hallucinations: Denies Suicidal Ideation: Denies Homicidal Ideation: Denies Insight/Judgement: Fair Sleep: Fair Appetite: Fair Muscle strength/Tone: Normal Gait/Station: Normal Psychiatric Treatment Plan - Problem List (1) Nicotine dependence Current Visit: Yes Qualifiers: Nicotine product type: cigarettes Substance use status: in withdrawal Qualified Code(s): F17.213 - Nicotine dependence, cigarettes, with withdrawal; F17.213 - Nicotine dependence, cigarettes, with withdrawal (2) Post traumatic stress disorder (PTSD) Current Visit: Yes (3) MU (generalized anxiety disorder) Current Visit: Yes (4) Alcohol dependence Current Visit: Yes (5) Cocaine abuse Current Visit: Yes
[2017-03-25] MEDS: busPIRone HCL 10 MG TABLET (FP) PO SCH ×2 (14:23→21:39)
[2017-03-25] MEDS: QUEtiapine FUMARATE 50 MG TABLET PO SCH (21:39)
[2017-03-25] MEDS: THIAMINE HCL 100 MG TABLET (FP) PO SCH (21:39)
[2017-03-25] MEDS: PRAZOSIN HCL 1 MG CAPSULE PO SCH (21:39)
[2017-03-26] MEDS: busPIRone HCL 10 MG TABLET (FP) PO SCH ×3 (06:21→21:47)
[2017-03-26] MEDS: NICOTINE POLACRILEX 4 MG GUM BUC PRN ×7 (06:21→20:06)
[2017-03-26] MEDS: PRENATAL VITAMINS W/ FOLIC ACID TABLET (FP) PO SCH (10:31)
[2017-03-26] MEDS: PRAZOSIN HCL 1 MG CAPSULE PO SCH (21:47)
[2017-03-26] MEDS: THIAMINE HCL 100 MG TABLET (FP) PO SCH (21:47)
[2017-03-26] MEDS: QUEtiapine FUMARATE 50 MG TABLET PO SCH (21:47)
[2017-03-27] MEDS: busPIRone HCL 10 MG TABLET (FP) PO SCH ×3 (06:16→21:35)
[2017-03-27] MEDS: NICOTINE POLACRILEX 4 MG GUM BUC PRN ×6 (06:16→21:37)
[2017-03-27] MEDS: PRENATAL VITAMINS W/ FOLIC ACID TABLET (FP) PO SCH (10:15)
[2017-03-27] MEDS: QUEtiapine FUMARATE 50 MG TABLET PO SCH (21:36)
[2017-03-27] MEDS: THIAMINE HCL 100 MG TABLET (FP) PO SCH (21:36)
[2017-03-27] MEDS: PRAZOSIN HCL 1 MG CAPSULE PO SCH (21:36)
[2017-03-28] MEDS: busPIRone HCL 10 MG TABLET (FP) PO SCH ×3 (06:21→21:37)
[2017-03-28] MEDS: NICOTINE POLACRILEX 4 MG GUM BUC PRN ×7 (06:22→22:21)
[2017-03-28] MEDS: PRENATAL VITAMINS W/ FOLIC ACID TABLET (FP) PO SCH (10:09)
[2017-03-28] MEDS: PRAZOSIN HCL 1 MG CAPSULE PO SCH (21:37)
[2017-03-28] MEDS: QUEtiapine FUMARATE 50 MG TABLET PO SCH (21:37)
[2017-03-28] MEDS: THIAMINE HCL 100 MG TABLET (FP) PO SCH (21:37)
[2017-03-29] MEDS: busPIRone HCL 10 MG TABLET (FP) PO SCH ×3 (06:34→22:05)
[2017-03-29] MEDS: PRENATAL VITAMINS W/ FOLIC ACID TABLET (FP) PO SCH (10:28)
[2017-03-29] MEDS: NICOTINE POLACRILEX 4 MG GUM BUC PRN ×6 (10:28→22:07)
[2017-03-29] MEDS: PRAZOSIN HCL 1 MG CAPSULE PO SCH (22:05)
[2017-03-29] MEDS: QUEtiapine FUMARATE 50 MG TABLET PO SCH (22:05)
[2017-03-29] MEDS: THIAMINE HCL 100 MG TABLET (FP) PO SCH (22:06)
[2017-03-30] MEDS: busPIRone HCL 10 MG TABLET (FP) PO SCH ×3 (06:51→21:43)
[2017-03-30] MEDS: NICOTINE POLACRILEX 4 MG GUM BUC PRN ×7 (06:51→21:44)
[2017-03-30] MEDS: PRENATAL VITAMINS W/ FOLIC ACID TABLET (FP) PO SCH (10:19)
--- NOTE | 2017-03-30 14:21 | PN ---
Psychiatric Progress Note Vital Signs: Vital Signs Period Temp Pulse Resp BP Sys/Melton Pulse Ox Last 24 Hr 98.3 F 61-70 18-18 95-122/51-69 Date of Session: 03/30/17 Chief Complaint:: Discharge Note HPI: Patient addressing Alcohol Dependence, Cocaine Abuse comorbid with Nicotine Dependence, Posttraumatic Stress Disorder and Generalized Anxiety Disorder Current Medications: Active Medications Generic Name Dose Route Start Last Admin Trade Name Freq PRN Reason Stop Dose Admin Acetaminophen 650 mg 03/11/17 12:57 Tylenol - PO Q4H PRN PAIN Al Hydroxide/Mg Hydroxide 30 ml 03/11/17 12:57 Mylanta Oral Suspension - PO Q6H PRN DYSPEPSIA Buspirone HCl 20 mg 03/25/17 14:00 03/30/17 06:51 Buspar - PO 20 mg TID ARRON Administration Diphenhydramine HCl 50 mg 03/11/17 12:57 Benadryl - PO HSMR1 PRN INSOMNIA Eucalyptus/Menthol/Phenol/Sorbitol 1 each 03/11/17 12:57 Cepastat Lozenge - MM Q4H PRN SORE THROAT Guaifenesin 10 ml 03/11/17 12:57 Robitussin Dm - PO Q6H PRN COUGH Hydroxyzine Pamoate 50 mg 03/11/17 12:57 Vistaril - PO Q4H PRN AGITATION Ibuprofen 400 mg 03/11/17 12:57 Motrin - PO Q6H PRN SEVERE PAIN Loperamide HCl 4 mg 03/11/17 12:57 Imodium - PO Q6H PRN DIARRHEA Magnesium Citrate 300 ml 03/11/17 12:57 Citroma - PO Q48H PRN CONSTIPATION Magnesium Hydroxide 30 ml 03/11/17 12:57 Milk Of Magnesia - PO DAILY PRN CONSTIPATION Nicotine Polacrilex 4 mg 03/11/17 12:57 03/30/17 12:28 Nicorette Gum - BUC 4 mg Q2H PRN Administration NICOTINE REPLACEMENT RX Prazosin HCl 2 mg 03/14/17 22:00 03/29/17 22:05 Minipress - PO 2 mg HS ARRON Administration Multivit/Folic Acid/Iron 1 tab 03/12/17 10:00 03/30/17 10:19 Vitamins (Sjr) - PO 1 tab DAILY ARRON Administration Pseudoephedrine/Triprolidine 1 combo 03/11/17 12:57 Actifed - PO TID PRN NASAL CONGESTION Quetiapine Fumarate 50 mg 03/11/17 22:00 03/29/17 22:05 Seroquel - PO 50 mg HS ARRON Administration Thiamine HCl 100 mg 03/11/17 22:00 03/29/17 22:06 Vitamin B1 - PO 100 mg HS ARRON Administration Current Side Effect: No Lab tests ordered: Yes Lab tests reviewed: Yes Provider note:: Patient will complete this program on 03/31/17. He has met his treatment goals and will continue to address his issues in outpatient program at [facility]. 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 He responded well to Seroquel 50 mg po HS, Buspar 20 mg po TID and Prazosin 2 mg po HS. Scripts for 30 days supply will electronically be transmitted to [facility] at [address] [place] [address]. He is stable for discharge on 03/31/17 Total face to face time:: 35 Mental Status Exam - Mental Status Exam Alert and Oriented to: Time, Place, Person Cognitive Function: Fair Patient Appearance: Well Groomed Mood: Hopeful, Euthymic Affect: Appropriate Patient Behavior: Cooperative Speech Pattern: Clear Voice Loudness: Normal Thought Process: Intact, Goal Oriented Thought Disorder: Not Present Hallucinations: Denies Suicidal Ideation: Denies Homicidal Ideation: Denies Insight/Judgement: Fair Sleep: Fair Appetite: Fair Muscle strength/Tone: Normal Gait/Station: Normal Psychiatric Treatment Plan - Problem List (1) Alcohol dependence Current Visit: Yes (2) Cocaine abuse Current Visit: Yes (3) Nicotine dependence Current Visit: Yes Qualifiers: Nicotine product type: cigarettes Substance use status: in withdrawal Qualified Code(s): F17.213 - Nicotine dependence, cigarettes, with withdrawal; F17.213 - Nicotine dependence, cigarettes, with withdrawal (4) MU (generalized anxiety disorder) Current Visit: Yes (5) Post traumatic stress disorder (PTSD) Current Visit: Yes Initial treatment plan: Patient will be discharged tomorrow and referred to [facility] for outpatient treatment
[2017-03-30] MEDS: THIAMINE HCL 100 MG TABLET (FP) PO SCH (21:44)
[2017-03-30] MEDS: QUEtiapine FUMARATE 50 MG TABLET PO SCH (21:44)
[2017-03-30] MEDS: PRAZOSIN HCL 1 MG CAPSULE PO SCH (21:44)
[2017-03-31] MEDS: busPIRone HCL 10 MG TABLET (FP) PO SCH (06:22)
[2017-03-31] MEDS: NICOTINE POLACRILEX 4 MG GUM BUC PRN ×2 (06:23→08:32)
[2017-03-31 07:11] VITALS: BP 108/58; PULSE 61; TEMP 98
== END 2017-03-31 08:55 | disposition home or self-care (01) | DRG 772 ==
LOC: YASAS 07:46 → Y5N 12:40
PROVIDERS: ADMIT Psychiatry & Neurology Psychiatry; ATTEND Psychiatry & Neurology Psychiatry
PROC: HZ42ZZZ Group Counseling for Substance Abuse Treatment, Cognitive-Behavioral (ICD-10-PCS; principal; 2017-03-11)
DX: F10.230 Alcohol dependence with withdrawal, uncomplicated (principal); F14.20 Cocaine dependence, uncomplicated; F17.210 Nicotine dependence, cigarettes, uncomplicated; F43.10 Post-traumatic stress disorder, unspecified; F41.1 Generalized anxiety disorder; F19.24 Other psychoactive substance dependence with psychoactive substance-induced mood disorder; F31.9 Bipolar disorder, unspecified
CPT/HCPCS: 81003; 93005; 93010

== ENCOUNTER 2017-11-01 12:48 | Inpatient (IN) | payer OTHER ==
--- NOTE | 2017-11-01 19:41 | HP ---
CIWA Score - CIWA Score Nausea/Vomitin-No Nausea/No Vomiting Muscle Tremors: 2 Anxiety: 2 Agitation: 1-Slight > Activity Paroxysmal Sweats: No Perspiration Orientation: 0-Oriented Tacttile Disturbances: 0-None Auditory Disturbances: 1-Very Mild Visual Disturbances: 1-Very Mild Sensitivity Headache: 3-Moderate CIWA-Ar Total Score: 10 Admission ROS S - HPI Chief Complaint: " I relapsed a month and half ago and started drinking again." Allergies/Adverse Reactions: Allergies Allergy/AdvReac Type Severity Reaction Status Date / Time No Known Allergies Allergy Verified 03/11/17 09:33 History of Present Illness: 42 yo male with hx of nicotine, alcohol and cocaine dependence is here seeking detox. PMHX: depression and anxiety. Martha roberts was on psych meds before but stopped taking medications. Denies hx of seizures or blackouts. Denies suicidal / homicidal ideation. Last detox and rehab at [facility] March 2017. Longest period of sobriety 1 year. Exam Limitations: No Limitations - Ebola screening Have you traveled outside of the country in the last 21 days: No ([place]) Have you had contact with anyone from an Ebola affected area: No Have you been sick,other than usual withdrawal symptoms: No Do you have a fever: No - Review of Systems Constitutional: Loss of Appetite, Changes in sleep, Unintentional Wgt. Loss EENT: reports: No Symptoms Reported Respiratory: reports: No Symptoms reported Cardiac: reports: No Symptoms Reported GI: reports: Poor Appetite, Poor Fluid Intake : reports: No Symptoms Reported Musculoskeletal: reports: No Symptoms Reported Neuro: reports: Headache Endocrine: reports: Increased Thirst Hematology: reports: No Symptoms Reported Psychiatric: reports: Orientated x3, Anxious Other Systems: Reviewed and Negative Patient History - Patient Medical History Hx Anemia: No Hx Asthma: No Hx Chronic Obstructive Pulmonary Disease (COPD): No Hx Cancer: No Hx Cardiac Disorders: No Hx Congestive Heart Failure: No Hx Hypertension: No Hx Hypercholesterolemia: No Hx Pacemaker: No HX Cerebrovascular Accident: No Hx Seizures: No Hx Dementia: No Hx Diabetes: No Hx Gastrointestinal Disorders: No (History of Intestinal Polyps; Surgically removed (2013).) Hx Liver Disease: No Hx Genitourinary Disorders: No Hx Sexually Transmitted Disorders: No Hx Renal Disease (ESRD): No Hx Thyroid Disease: No Hx Human Immunodeficiency Virus (HIV): No (Last Tested: 11/2016: NEGATIVE.) Hx Hepatitis C: No (Last Tested: 11/2016: NEGATIVE.) Hx Depression: Yes Hx Suicide Attempt: No Hx Bipolar Disorder: Yes (Diagnosed in past at other Detox program (2011). No treatment currently.) Hx Schizophrenia: No - Patient Surgical History Past Surgical History: Yes Hx Neurologic Surgery: No Hx Cataract Extraction: No Hx Cardiac Surgery: No Hx Lung Surgery: No Hx Breast Surgery: No Hx Breast Biopsy: No Hx Abdominal Surgery: No Hx Appendectomy: Yes (1995) Hx Cholecystectomy: No Hx Genitourinary Surgery: No Hx Orthopedic Surgery: No Anesthesia Reaction: No - PPD History Previous Implant?: Yes Documented Results: Negative w/proof Date: 03/07/17 Results: 0 mm. PPD to be Administered?: No - Smoking Cessation Smoking history: Current every day smoker Have you smoked in the past 12 months: Yes Aproximately how many cigarettes per day: 30 Cigars Per Day: 0 Hx Chewing Tobacco Use: No Initiated information on smoking cessation: Yes 'Breaking Loose' booklet given: 11/01/17 - Substance & Tx. History Hx Alcohol Use: Yes Hx Substance Use: Yes Substance Use Type: Alcohol, Cocaine Hx Substance Use Treatment: Yes ([facility] March 2017) - Substances Abused Alcohol Route: Oral Frequency: Daily Amount used: 1 litter Age of first use: 19 Date of Last Use: 11/01/17 Cocaine Route: Inhalation Frequency: 3-6 times per week Amount used: $300 Age of first use: 28 Date of Last Use: 11/01/17 Family Disease History - Family Disease History Family Disease History: Diabetes: Grandparent (alive) Admission Physical Exam [facility] - Vital Signs Vital Signs: Vital Signs - 24 hr 11/01/17 16:32 Temperature 97 F L Pulse Rate 78 Respiratory 18 Rate Blood Pressure 133/60 - Physical General Appearance: Yes: Appropriately Dressed, Mild Distress, Sweating, Anxious HEENTM: Yes: EOMI, Hearing grossly Normal, Normal ENT Inspection, Normocephalic , Normal Voice, DB, Pharynx Normal, Tm's normal Respiratory: Yes: Chest Non-Tender, Lungs Clear, Normal Breath Sounds, No Respiratory Distress, No Accessory Muscle Use Neck: Yes: No masses,lesions,Nodules, Trachea in good position Breast: Yes: Breast Exam Deferred Cardiology: Yes: Regular Rhythm, Regular Rate Abdominal: Yes: Normal Bowel Sounds, Non Tender, Flat, Soft Genitourinary: Yes: Within Normal Limits Back: Yes: Normal Inspection Musculoskeletal: Yes: full range of Motion, Gait Steady, Pelvis Stable Extremities: Yes: Normal Capillary Refill, Normal Inspection, Normal Range of Motion, Non-Tender Neurological: Yes: yard engineer II-XII NML intact, Fully Oriented, Alert, Motor Strength 5/5, Depressed Affect Integumentary: Yes: Normal Color, Warm, Diaphoresis Lymphatic: Yes: Within Normal Limits - Diagnostic (1) Anxiety and depression Current Visit: Yes Status: Acute (2) Headache Current Visit: Yes Status: Acute Qualifiers: Headache type: unspecified (3) Nicotine dependence Current Visit: Yes Status: Acute Qualifiers: Nicotine product type: cigarettes Substance use status: in withdrawal Qualified Code(s): F17.213 - Nicotine dependence, cigarettes, with withdrawal (4) Cocaine dependence, uncomplicated Current Visit: Yes Status: Chronic Cleared for Admission [facility] - Detox or Rehab [facility] Level of Care: Medically Supervised Detox Regimen/Protocol: Librium [facility] Breath Alcohol Content Breath Alcohol Content: 0 Urine Drug Screen - Results Drug Screen Negative: No Urine Drug Screen Results: PEDRITO-Cocaine
[2017-11-01] MEDS ORDERED: MAGNESIUM CITRATE 300 ML BOTTLE PO PRN (19:49)
[2017-11-01] MEDS ORDERED: chlordiazePOXIDE HCL 25 MG CAPSULE PO PRN (19:49)
[2017-11-01] MEDS ORDERED: guaiFENesin/D-METHORPHAN HB 10 ML UNIT-DOSE CUPS PO PRN (19:49)
[2017-11-01] MEDS ORDERED: MENTHOL/PHENOL 1 EACH UD MM PRN (19:49)
[2017-11-01] MEDS ORDERED: MAGNESIUM HYDROX 2400MG/30ML ORAL SUSPENSION 30 ML CUP PO PRN (19:49)
[2017-11-01] MEDS ORDERED: IBUPROFEN 400 MG TABLET (FP) PO PRN (19:49)
[2017-11-01] MEDS ORDERED: ACETAMINOPHEN 325 MG TABLET (FP) PO PRN (19:49)
[2017-11-01] MEDS ORDERED: hydrOXYzine PAMOATE 50 MG CAPSULE (FP) PO PRN (19:49)
[2017-11-01] MEDS ORDERED: P-EPHED 60MG/TRIPROLIDI 2.5MG TABLET PO PRN (19:49)
[2017-11-01] MEDS ORDERED: LOPERAMIDE HCL 2 MG CAPSULE PO PRN (19:49)
[2017-11-01] MEDS ORDERED: MAG HYDROX/AL HYDROX/SIMETH 30 ML UNIT-DOSE CUP PO PRN (19:49)
[2017-11-01] MEDS ORDERED: chlordiazePOXIDE HCL 25 MG CAPSULE PO ONE (20:15)
[2017-11-01] MEDS: THIAMINE HCL 100 MG TABLET (FP) PO SCH (21:23)
[2017-11-01] MEDS ORDERED: MELATONIN 5 MG TABLETS PO PRN (22:00)
[2017-11-01] MEDS: chlordiazePOXIDE HCL 25 MG CAPSULE PO SCH (22:06)
[2017-11-02] MEDS: chlordiazePOXIDE HCL 25 MG CAPSULE PO SCH ×4 (05:13→22:10)
[2017-11-02] MEDS: PRENATAL VITAMINS W/ FOLIC ACID TABLET (FP) PO SCH (10:32)
[2017-11-02] MEDS: NICOTINE POLACRILEX 4 MG GUM BC PRN ×3 (10:34→22:14)
[2017-11-02 10:57] LABS: HEMATOCRIT 44.3 % (35.4-49); HEMOGLOBIN 14.5 GM/dL (11.7-16.9); MCH 25.8 pg (25.7-33.7); MCHC 32.7 g/dl (32.0-35.9); MEAN CELL VOLUME 79.1 fl (80-96); MEAN PLT VOLUME 9.1 fl (7.5-11.1); PLATELET COUNT 251 K/MM3 (134-434); RBC 5.59 M/mm3 (4.00-5.60); RDW 16.1 % (11.9-15.9); WHITE BLOOD COUNT 8.9 K/mm3 (4.0-10.0)
[2017-11-02 10:59] LABS: URINE APPEARANCE CLEAR; URINE BILIRUBIN NEGATIVE (<2.0 mg/dL); URINE BLOOD NEGATIVE (NEGATIVE); URINE COLOR AMBER; URINE GLUCOSE (UA) NEGATIVE (NEGATIVE); URINE KETONE NEGATIVE (NEGATIVE); URINE LEUK ESTERASE NEGATIVE (NEGATIVE); URINE NITRITE NEGATIVE (NEGATIVE); URINE UROBILINOGEN 4.0 E.U/dl mg/dL (0.2-1.0)
[2017-11-02 11:02] LABS: URINE PROTEIN 1+ (NEGATIVE)
[2017-11-02 11:04] LABS: ALBUMIN 3.4 g/dl (3.4-5.0); ANION GAP 5 (8-16); BLOOD UREA NITROGEN 14 mg/dL (7-18); CALCIUM 8.8 mg/dL (8.5-10.1); CHLORIDE 105 mmol/L (98-107); CO2 32 mmol/L (21-32); GLUCOSE,RANDOM 90 mg/dL (74-106); POTASSIUM 3.9 mmol/L (3.5-5.1); SGOT/AST 12 U/L (15-37); SODIUM 142 mmol/L (136-145)
[2017-11-02 11:07] LABS: ALK PHOS 57 U/L (45-117); BILIRUBIN,TOTAL 0.6 mg/dL (0.2-1.0); SGPT/ALT 18 U/L (12-78); TOT PROT 6.8 g/dl (6.4-8.2)
[2017-11-02 11:50] LABS: CALCIUM OXALATE CRYSTALS RARE /hpf (NONE SEEN); EPI CELLS RARE /HPF (FEW); URINE BACTERIA RARE /hpf (NONE SEEN); URINE HYALINE CAST 2 /lpf; URINE MUCUS FEW
--- NOTE | 2017-11-02 13:23 | PN ---
[facility] CIWA - CIWA Score Nausea/Vomitin-Mild Nausea/No Vomiting Muscle Tremors: 3 Anxiety: 2 Agitation: 2 Paroxysmal Sweats: 1-Minimal Palms Moist Orientation: 0-Oriented Tacttile Disturbances: 0-None Auditory Disturbances: 0-None Visual Disturbances: 0-None Headache: 0-None Present CIWA-Ar Total Score: 9 BHS Progress Note (SOAP) Subjective: mild gi distress tremor sweat hot and cold chill discuss aftercare planning with the patient Objective: 11/02/17 13:21 Vital Signs Temperature 97.9 F 11/02/17 09:17 Pulse Rate 53 L 11/02/17 09:17 Respiratory Rate 18 11/02/17 09:17 Blood Pressure 91/50 11/02/17 09:17 O2 Sat by Pulse Oximetry (%) Laboratory Last Values WBC 8.9 K/mm3 (4.0-10.0) 11/02/17 07:40 RBC 5.59 M/mm3 (4.00-5.60) 11/02/17 07:40 Hgb 14.5 GM/dL (11.7-16.9) 11/02/17 07:40 Hct 44.3 % (35.4-49) 11/02/17 07:40 MCV 79.1 fl (80-96) L 11/02/17 07:40 MCH 25.8 pg (25.7-33.7) 11/02/17 07:40 MCHC 32.7 g/dl (32.0-35.9) 11/02/17 07:40 RDW 16.1 % (11.9-15.9) H 11/02/17 07:40 Plt Count 251 K/MM3 (134-434) 11/02/17 07:40 MPV 9.1 fl (7.5-11.1) 11/02/17 07:40 Sodium 142 mmol/L (136-145) 11/02/17 07:40 Potassium 3.9 mmol/L (3.5-5.1) 11/02/17 07:40 Chloride 105 mmol/L (98-107) 11/02/17 07:40 Carbon Dioxide 32 mmol/L (21-32) 11/02/17 07:40 Anion Gap 5 (8-16) L 11/02/17 07:40 BUN 14 mg/dL (7-18) 11/02/17 07:40 Creatinine 1.0 mg/dL (0.7-1.3) 11/02/17 07:40 Creat Clearance w eGFR > 60 (>60) 11/02/17 07:40 Random Glucose 90 mg/dL (74-106) 11/02/17 07:40 Calcium 8.8 mg/dL (8.5-10.1) 11/02/17 07:40 Total Bilirubin 0.6 mg/dL (0.2-1.0) D 11/02/17 07:40 AST 12 U/L (15-37) L D 11/02/17 07:40 ALT 18 U/L (12-78) 11/02/17 07:40 Alkaline Phosphatase 57 U/L (45-117) 11/02/17 07:40 Total Protein 6.8 g/dl (6.4-8.2) 11/02/17 07:40 Albumin 3.4 g/dl (3.4-5.0) 11/02/17 07:40 Urine Color Rossi 11/02/17 08:15 Urine Appearance Clear 11/02/17 08:15 Urine pH 7.0 (5.0-8.0) 11/02/17 08:15 Ur Specific [place] 1.025 (1.001-1.035) 11/02/17 08:15 Urine Protein 1+ (NEGATIVE) H 11/02/17 08:15 Urine Glucose (UA) Negative (NEGATIVE) 11/02/17 08:15 Urine Ketones Negative (NEGATIVE) 11/02/17 08:15 Urine Blood Negative (NEGATIVE) 11/02/17 08:15 Urine Nitrite Negative (NEGATIVE) 11/02/17 08:15 Urine Bilirubin Negative (<2.0 mg/dL) 11/02/17 08:15 Urine Urobilinogen 4.0 e.u/dl mg/dL (0.2-1.0) 11/02/17 08:15 Ur Leukocyte Esterase Negative (NEGATIVE) 11/02/17 08:15 Urine WBC (Auto) 3 /hpf (3-5) 11/02/17 08:15 Urine RBC (Auto) 38 /hpf (0-3) 11/02/17 08:15 Ur Epithelial Cells Rare /HPF (FEW) 11/02/17 08:15 Calcium Oxalate Crystal Rare /hpf (NONE SEEN) 11/02/17 08:15 Urine Bacteria Rare /hpf (NONE SEEN) 11/02/17 08:15 Hyaline Casts 2 /lpf 11/02/17 08:15 Urine Mucus Few 11/02/17 08:15 RPR Titer Nonreactive (NONREACTIVE) 11/02/17 07:40 lab noted increase oral fluid Assessment: 11/02/17 13:25 withdrawal sx oxalate urine 11/02/17 13:26 Plan: continue detox increase oral fluid
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
[2017-11-02] MEDS: GABAPENTIN 100 MG CAPSULE (FP) PO SCH ×2 (15:42→22:11)
[2017-11-02] MEDS ORDERED: PRAZOSIN HCL 2 MG CAPSULE PO SCH (22:00)
[2017-11-02] MEDS: PRAZOSIN HCL 1 MG CAPSULE PO SCH (22:11)
[2017-11-02] MEDS: ZOLPIDEM TARTRATE 10 MG TABLET (PARK CARE ONLY) PO PRN (22:12)
[2017-11-02] MEDS: THIAMINE HCL 100 MG TABLET (FP) PO SCH (22:12)
--- NOTE | 2017-11-02 22:41 | EKG ---
Test Reason : Blood Pressure : / mmHG Vent. Rate : 065 BPM Atrial Rate : 065 BPM P-R Int : 170 ms QRS Dur : 096 ms QT Int : 410 ms P-R-T Axes : 046 064 038 degrees QTc Int : 426 ms NORMAL SINUS RHYTHM NORMAL ECG WHEN COMPARED WITH ECG OF 11-MAR-2017 22:41, NO SIGNIFICANT CHANGE WAS FOUND Confirmed by JAIR SMITH MD ([id number]) on 11/02/2017 10:41:33 PM Referred By: Confirmed By:JAIR SMITH MD
[2017-11-03] MEDS: GABAPENTIN 100 MG CAPSULE (FP) PO SCH ×3 (05:02→22:28)
[2017-11-03] MEDS: chlordiazePOXIDE HCL 25 MG CAPSULE PO SCH ×3 (05:04→17:32)
[2017-11-03] MEDS: PRENATAL VITAMINS W/ FOLIC ACID TABLET (FP) PO SCH (10:36)
[2017-11-03] MEDS: NICOTINE POLACRILEX 4 MG GUM BC PRN (10:36)
--- NOTE | 2017-11-03 11:30 | PN ---
S CIWA - CIWA Score Nausea/Vomitin-Mild Nausea/No Vomiting Muscle Tremors: 2 Anxiety: 1-Mildly Anxious Agitation: 1-Slight > Activity Paroxysmal Sweats: 1-Minimal Palms Moist Orientation: 0-Oriented Tacttile Disturbances: 1-Very Mild Itch/Numbness Auditory Disturbances: 0-None Visual Disturbances: 0-None Headache: 0-None Present CIWA-Ar Total Score: 7 BHS Progress Note (SOAP) Subjective: mild alcohol withdrawal sx report trouble sleep at night feeling anxiousness and irritable restlessness
[2017-11-03] MEDS: PRAZOSIN HCL 1 MG CAPSULE PO SCH (22:28)
[2017-11-03] MEDS: THIAMINE HCL 100 MG TABLET (FP) PO SCH (22:28)
[2017-11-03] MEDS: chlordiazePOXIDE 5 MG CAPSULE PO SCH (22:28)
[2017-11-03] MEDS: ZOLPIDEM TARTRATE 10 MG TABLET (PARK CARE ONLY) PO PRN (22:31)
[2017-11-04] MEDS: chlordiazePOXIDE 5 MG CAPSULE PO SCH ×3 (05:30→17:24)
[2017-11-04] MEDS: GABAPENTIN 100 MG CAPSULE (FP) PO SCH ×3 (05:30→22:19)
[2017-11-04] MEDS: NICOTINE POLACRILEX 4 MG GUM BC PRN ×7 (05:31→22:43)
[2017-11-04] MEDS: PRENATAL VITAMINS W/ FOLIC ACID TABLET (FP) PO SCH (10:13)
--- NOTE | 2017-11-04 11:50 | PN ---
BHS Progress Note (SOAP) Subjective: feeling better less sweat no tremor discuss aftercare with the counselor Objective: 11/04/17 11:51 Vital Signs Temperature 97.7 F 11/04/17 09:12 Pulse Rate 72 11/04/17 09:12 Respiratory Rate 18 11/04/17 09:12 Blood Pressure 116/59 11/04/17 09:12 O2 Sat by Pulse Oximetry (%) Laboratory Last Values WBC 8.9 K/mm3 (4.0-10.0) 11/02/17 07:40 RBC 5.59 M/mm3 (4.00-5.60) 11/02/17 07:40 Hgb 14.5 GM/dL (11.7-16.9) 11/02/17 07:40 Hct 44.3 % (35.4-49) 11/02/17 07:40 MCV 79.1 fl (80-96) L 11/02/17 07:40 MCH 25.8 pg (25.7-33.7) 11/02/17 07:40 MCHC 32.7 g/dl (32.0-35.9) 11/02/17 07:40 RDW 16.1 % (11.9-15.9) H 11/02/17 07:40 Plt Count 251 K/MM3 (134-434) 11/02/17 07:40 MPV 9.1 fl (7.5-11.1) 11/02/17 07:40 Sodium 142 mmol/L (136-145) 11/02/17 07:40 Potassium 3.9 mmol/L (3.5-5.1) 11/02/17 07:40 Chloride 105 mmol/L (98-107) 11/02/17 07:40 Carbon Dioxide 32 mmol/L (21-32) 11/02/17 07:40 Anion Gap 5 (8-16) L 11/02/17 07:40 BUN 14 mg/dL (7-18) 11/02/17 07:40 Creatinine 1.0 mg/dL (0.7-1.3) 11/02/17 07:40 Creat Clearance w eGFR > 60 (>60) 11/02/17 07:40 Random Glucose 90 mg/dL (74-106) 11/02/17 07:40 Calcium 8.8 mg/dL (8.5-10.1) 11/02/17 07:40 Total Bilirubin 0.6 mg/dL (0.2-1.0) D 11/02/17 07:40 AST 12 U/L (15-37) L D 11/02/17 07:40 ALT 18 U/L (12-78) 11/02/17 07:40 Alkaline Phosphatase 57 U/L (45-117) 11/02/17 07:40 Total Protein 6.8 g/dl (6.4-8.2) 11/02/17 07:40 Albumin 3.4 g/dl (3.4-5.0) 11/02/17 07:40 Urine Color Rossi 11/02/17 08:15 Urine Appearance Clear 11/02/17 08:15 Urine pH 7.0 (5.0-8.0) 11/02/17 08:15 Ur Specific [place] 1.025 (1.001-1.035) 11/02/17 08:15 Urine Protein 1+ (NEGATIVE) H 11/02/17 08:15 Urine Glucose (UA) Negative (NEGATIVE) 11/02/17 08:15 Urine Ketones Negative (NEGATIVE) 11/02/17 08:15 Urine Blood Negative (NEGATIVE) 11/02/17 08:15 Urine Nitrite Negative (NEGATIVE) 11/02/17 08:15 Urine Bilirubin Negative (<2.0 mg/dL) 11/02/17 08:15 Urine Urobilinogen 4.0 e.u/dl mg/dL (0.2-1.0) 11/02/17 08:15 Ur Leukocyte Esterase Negative (NEGATIVE) 11/02/17 08:15 Urine WBC (Auto) 3 /hpf (3-5) 11/02/17 08:15 Urine RBC (Auto) 38 /hpf (0-3) 11/02/17 08:15 Ur Epithelial Cells Rare /HPF (FEW) 11/02/17 08:15 Calcium Oxalate Crystal Rare /hpf (NONE SEEN) 11/02/17 08:15 Urine Bacteria Rare /hpf (NONE SEEN) 11/02/17 08:15 Hyaline Casts 2 /lpf 11/02/17 08:15 Urine Mucus Few 11/02/17 08:15 RPR Titer Nonreactive (NONREACTIVE) 11/02/17 07:40 lab noted Assessment: mild withdrawal sx 11/04/17 11:54 Plan: medically supervised detox
[2017-11-04] MEDS: ZOLPIDEM TARTRATE 10 MG TABLET (PARK CARE ONLY) PO PRN (22:19)
[2017-11-04] MEDS: THIAMINE HCL 100 MG TABLET (FP) PO SCH (22:19)
[2017-11-04] MEDS: chlordiazePOXIDE HCL 10 MG CAPSULE PO SCH (22:20)
[2017-11-04] MEDS: PRAZOSIN HCL 1 MG CAPSULE PO SCH (22:42)
[2017-11-05] MEDS: GABAPENTIN 100 MG CAPSULE (FP) PO SCH (05:29)
[2017-11-05] MEDS: chlordiazePOXIDE HCL 10 MG CAPSULE PO SCH (05:29)
[2017-11-05] MEDS: NICOTINE POLACRILEX 4 MG GUM BC PRN ×2 (05:31→09:00)
[2017-11-05 06:26] VITALS: BP 101/47; PULSE 55; TEMP 99.5
--- NOTE | 2017-11-05 09:04 | DS ---
[facility] Detox Discharge Summary Admission Date: 11/01/17 Discharge Date: 11/05/17 - History Present History: Alcohol Dependence Additional Comments: 42 years old male admitted 11/01/17 for alcohol withdrawal sx completed alcohol detox regimen tolerated well denies alcohol withdrawal sx aftercare [facility] as per counselor arranged alert oriented x 3 no acute distress wants aftercare for sobriety patient determined to maintain alcohol free - Physical Exam Results Vital Signs: Vital Signs Temperature 99.5 F 11/05/17 06:26 Pulse Rate 55 L 11/05/17 06:26 Respiratory Rate 18 11/05/17 06:26 Blood Pressure 101/47 11/05/17 06:26 O2 Sat by Pulse Oximetry (%) Pertinent Admission Physical Exam Findings: alcohol withdrawal sx Vital Signs Temperature 99.5 F 11/05/17 06:26 Pulse Rate 55 L 11/05/17 06:26 Respiratory Rate 18 11/05/17 06:26 Blood Pressure 101/47 11/05/17 06:26 O2 Sat by Pulse Oximetry (%) Laboratory Last Values WBC 8.9 K/mm3 (4.0-10.0) 11/02/17 07:40 RBC 5.59 M/mm3 (4.00-5.60) 11/02/17 07:40 Hgb 14.5 GM/dL (11.7-16.9) 11/02/17 07:40 Hct 44.3 % (35.4-49) 11/02/17 07:40 MCV 79.1 fl (80-96) L 11/02/17 07:40 MCH 25.8 pg (25.7-33.7) 11/02/17 07:40 MCHC 32.7 g/dl (32.0-35.9) 11/02/17 07:40 RDW 16.1 % (11.9-15.9) H 11/02/17 07:40 Plt Count 251 K/MM3 (134-434) 11/02/17 07:40 MPV 9.1 fl (7.5-11.1) 11/02/17 07:40 Sodium 142 mmol/L (136-145) 11/02/17 07:40 Potassium 3.9 mmol/L (3.5-5.1) 11/02/17 07:40 Chloride 105 mmol/L (98-107) 11/02/17 07:40 Carbon Dioxide 32 mmol/L (21-32) 11/02/17 07:40 Anion Gap 5 (8-16) L 11/02/17 07:40 BUN 14 mg/dL (7-18) 11/02/17 07:40 Creatinine 1.0 mg/dL (0.7-1.3) 11/02/17 07:40 Creat Clearance w eGFR > 60 (>60) 11/02/17 07:40 Random Glucose 90 mg/dL (74-106) 11/02/17 07:40 Calcium 8.8 mg/dL (8.5-10.1) 11/02/17 07:40 Total Bilirubin 0.6 mg/dL (0.2-1.0) D 11/02/17 07:40 AST 12 U/L (15-37) L D 11/02/17 07:40 ALT 18 U/L (12-78) 11/02/17 07:40 Alkaline Phosphatase 57 U/L (45-117) 11/02/17 07:40 Total Protein 6.8 g/dl (6.4-8.2) 11/02/17 07:40 Albumin 3.4 g/dl (3.4-5.0) 11/02/17 07:40 Urine Color Rossi 11/02/17 08:15 Urine Appearance Clear 11/02/17 08:15 Urine pH 7.0 (5.0-8.0) 11/02/17 08:15 Ur Specific [place] 1.025 (1.001-1.035) 11/02/17 08:15 Urine Protein 1+ (NEGATIVE) H 11/02/17 08:15 Urine Glucose (UA) Negative (NEGATIVE) 11/02/17 08:15 Urine Ketones Negative (NEGATIVE) 11/02/17 08:15 Urine Blood Negative (NEGATIVE) 11/02/17 08:15 Urine Nitrite Negative (NEGATIVE) 11/02/17 08:15 Urine Bilirubin Negative (<2.0 mg/dL) 11/02/17 08:15 Urine Urobilinogen 4.0 e.u/dl mg/dL (0.2-1.0) 11/02/17 08:15 Ur Leukocyte Esterase Negative (NEGATIVE) 11/02/17 08:15 Urine WBC (Auto) 3 /hpf (3-5) 11/02/17 08:15 Urine RBC (Auto) 38 /hpf (0-3) 11/02/17 08:15 Ur Epithelial Cells Rare /HPF (FEW) 11/02/17 08:15 Calcium Oxalate Crystal Rare /hpf (NONE SEEN) 11/02/17 08:15 Urine Bacteria Rare /hpf (NONE SEEN) 11/02/17 08:15 Hyaline Casts 2 /lpf 11/02/17 08:15 Urine Mucus Few 11/02/17 08:15 RPR Titer Nonreactive (NONREACTIVE) 11/02/17 07:40 lab noted - Treatment Hospital Course: Detox Protocol Followed, Detoxed Safely, Responded well, Discharged Condition Good, Rehab Referral Accepted Patient has Accepted a Rehab Referral to: [facility] - Medication Discharge Medications: Ambulatory Orders NK [No Known Home Medication] 11/01/17 - Diagnosis (1) Nicotine dependence Current Visit: Yes Status: Acute Qualifiers: Nicotine product type: cigarettes Substance use status: in withdrawal Qualified Code(s): F17.213 - Nicotine dependence, cigarettes, with withdrawal (2) Alcohol dependence with uncomplicated withdrawal Current Visit: Yes Status: Acute (3) Depression (emotion) Current Visit: Yes Status: Suspected Qualifiers: Depression Type: dysthymia Qualified Code(s): F34.1 - Dysthymic disorder - AMA Did Patient Leave Against Medical Advice: No
== END 2017-11-05 08:58 | disposition home or self-care (01) | DRG 774 ==
LOC: YASAS 12:48 → Y6N 20:12
PROVIDERS: ADMIT Surgery; ATTEND Surgery
PROC: HZ2ZZZZ Detoxification Services for Substance Abuse Treatment (ICD-10-PCS; principal; 2017-11-01)
DX: F10.230 Alcohol dependence with withdrawal, uncomplicated (principal); F14.20 Cocaine dependence, uncomplicated; F17.213 Nicotine dependence, cigarettes, with withdrawal; F34.1 Dysthymic disorder; F41.8 Other specified anxiety disorders; F19.282 Other psychoactive substance dependence with psychoactive substance-induced sleep disorder; R51 Headache
CPT/HCPCS: 36415; 80053; 81003; 81015; 85027; 86593; 87389; 93005; 93010